=== PATIENT | female | born 1950 | race Caucasian/White ===

== ENCOUNTER 2019-01-14 07:57 | Day surgery (SDC) | payer OTHER, MEDICARE ==
[2019-01-13 13:16] VITALS: BMI 30.7
[2019-01-14 09:32] VITALS: TEMP 97.9
[2019-01-14 10:30] VITALS: BP 127/62; PULSE 59
--- NOTE | 2019-01-15 17:37 | PATH ---
Surgical Pathology Report Patient Name: JESSI PONCE [facility]. Rec. #: [id number] /Age/Gender: 1950 (Age: 68) / F Account: [id number] Location: U-ENDOSCOPY Taken: 01/14/2019 Received: 01/14/2019 Reported: 01/15/2019 Physicians: Juan Antonio Ryan D.O. Specimen(s) Received A: ANTRUM B: BODY AND ANGULARIS C: GE JUNCTION Clinical History Right upper quadrant pain Postoperative diagnosis: Gastritis Final Diagnosis A. ANTRAL EROSIONS, BIOPSY: GASTRIC MUCOSA WITH REACTIVE GASTROPATHY. IMMUNOSTAIN FOR H. PYLORI IS NEGATIVE. NEGATIVE FOR INTESTINAL METAPLASIA. B. BODY AND ANGULARIS, BIOPSY: GASTRIC MUCOSA WITH CHRONIC GASTRITIS. IMMUNOSTAIN FOR H. PYLORI IS NEGATIVE. NEGATIVE FOR INTESTINAL METAPLASIA. C. GE JUNCTION, BIOPSY: COLUMNAR (GASTRIC) MUCOSA WITH MILD CHRONIC GASTRITIS. NEGATIVE FOR INTESTINAL METAPLASIA. Electronically Signed Chad Ramirez M.D. Gross Description A. Received in formalin, labeled "biopsy antral erosions" are 4 barnett, irregular portions of soft tissue ranging from 0.2-0.5 cm. in greatest dimension. The specimens are submitted in toto in one cassette. B. Received in formalin, labeled "biopsy angularis and body" are 2 barnett, irregular portions of soft tissue measuring 0.2 and 0.4 cm. in greatest dimension. The specimens are submitted in toto in one cassette. C. Received in formalin, labeled "biopsy GE junction" are 2 barnett, irregular portions of soft tissue averaging 0.3 cm. in greatest dimension. The specimens are submitted in toto in one cassette. 01/14/2019 saudi01/14/2019
== END 2019-01-14 10:31 | disposition home or self-care (01) ==
LOC: JASU-ENDO 07:57
PROVIDERS: ATTEND Internal Medicine Gastroenterology
PROC: 0DB68ZX Excision of Stomach, Via Natural or Artificial Opening Endoscopic, Diagnostic (ICD-10-PCS; 2019-01-14)
PROC: 0DB58ZX Excision of Esophagus, Via Natural or Artificial Opening Endoscopic, Diagnostic (ICD-10-PCS; 2019-01-14)
PROC: 0DB48ZX Excision of Esophagogastric Junction, Via Natural or Artificial Opening Endoscopic, Diagnostic (ICD-10-PCS; principal; 2019-01-14 09:00)
DX: K25.9 Gastric ulcer, unspecified as acute or chronic, without hemorrhage or perforation (principal); K29.50 Unspecified chronic gastritis without bleeding
CPT/HCPCS: 88305-TC; 88342-TC

== ENCOUNTER 2019-03-23 08:10 | Day surgery (SDC) | payer OTHER, MEDICARE | END 2019-03-23 10:45 | disposition home or self-care (01) | LOC: JASU-ENDO 08:10 ==

== ENCOUNTER 2019-08-11 06:17 | Day surgery (SDC) | payer OTHER, MEDICARE ==
--- NOTE | 2019-03-30 09:37 | HP ---
DATE OF ADMISSION: 05/05/2019 DATE OF DICTATION: 03/02/2019 HISTORY OF PRESENT ILLNESS: The patient to be admitted through the [facility] for laparoscopic removal of her gallbladder/possible open removal. Apparently the patient is having intermittent bouts of epigastric pain and burning, with pain radiating to the right upper quadrant over the course of the past year. The patient also has arthritic changes of the back and does have a lot of back pain. Difficult to ascertain whether her back pain truly reflects arthritic degenerative changes related to her gallbladder as well. Nonetheless, the patient was recently seen by Dr. Sawyer of the GI service. An upper endoscopy demonstrated no significant findings except for a non-bleeding 6 to 7-mm ulcer in the gastric antrum with some surrounding smaller erosions. The biopsies were unremarkable. She was placed on pantoprazole, and is scheduled to undergo a repeat endoscopy in the next couple of months. Additionally, she was referred for a gallbladder ultrasound, which was completed on December 25, 2018, and demonstrated evidence of cholelithiasis with the gallbladder containing a 1-cm gallstone. No intrahepatic or extrahepatic duct dilatation. On questioning the patient does have a fatty food intolerance by history, and will awake at 4 o'clock in the morning with pain on occasion. She also has a strong family history for biliary disease with both her parents. No history of jaundice. No intentional weight loss. PAST MEDICAL HISTORY: Significant for hypertension, hypercholesterolemia, and underlying thyroid disorder. No known history of heart disease, diabetes, or respiratory or hepatic insufficiency. PAST SURGICAL HISTORY: Significant for bilateral knee replacements, total abdominal hysterectomy, Achilles tendon surgery, parotid gland surgery. ALLERGIES: CORTISONE. CURRENT MEDICATIONS: Verapamil, valsartan, atorvastatin, Synthroid, Tylenol, and oxycodone p.r.n. for back pain. SOCIAL HISTORY: Negative tobacco. The patient did smoke up until 1978. Social alcohol, 1 to 4 drinks monthly. FAMILY HISTORY: Mother with history of emphysema and bladder cancer. Father with history of Paget disease. Siblings x1, healthy. REVIEW OF SYSTEMS: Nil. PHYSICAL EXAMINATION: ABDOMEN: Soft and nontender, with no palpable findings. A low transverse scar is noted, consistent with prior RESIDENTIAL COUNSELOR interventions. IMPRESSION: Chronic cholecystitis/cholelithiasis. PLAN: At this juncture the patient has a lot of personal obligations in place, and states that she is taking care of [id number] mother additionally. She would like to defer an operative intervention if at all possible. I have taken the liberty of placing the patient on a low-fat diet. I have explained that she remain symptomatic nonetheless. I encouraged to consider elective laparoscopic cholecystectomy, which she states she may consider in early April. If the patient has opted for elective laparoscopic removal of gallbladder, will proceed with such. If the patient becomes terribly symptomatic in the interim, she may need ER evaluation and earlier intervention. Diet at this juncture. The indications, alternatives, possible complications related to the intended procedure were reviewed. Consent obtained. The patient is to be seen preoperatively by Smith Clark MD. Please refer to his notes for those medical details. NICKY GUTIERREZ M.D. SOMMER/[id number] cc: MD DEMETRIUS KOEHLER DO MTDFernanda
[2019-08-11 07:06] VITALS: BMI 30.4
[2019-08-11] MEDS ORDERED: MIDAZOLAM HCL 2 MG/2 ML SINGLE DOSE VIAL ONE (07:41)
[2019-08-11] MEDS ORDERED: PROPOFOL 20 ML ONE ×3 (07:41→08:14)
[2019-08-11] MEDS ORDERED: fentaNYL CITRATE 250 MCG/5 ML VIAL ONE (07:41)
[2019-08-11] MEDS ORDERED: ROCURONIUM BROMIDE 50 MG/5 ML SYRINGE ONE (07:41)
[2019-08-11] MEDS ORDERED: SUCCINYLCHOLINE CHLORIDE 200 MG/10 ML SYRINGE ONE (07:45)
[2019-08-11] MEDS ORDERED: BUPIVACAINE HCL/PF 2.5 MG/ML - 30 ML VIAL IJ ONE (07:47)
[2019-08-11] MEDS ORDERED: ceFAZolin SODIUM 1 GM VIAL ONE (08:14)
[2019-08-11] MEDS ORDERED: ONDANSETRON 4 MG/2 ML VIAL ONE ×2 (08:15→08:54)
[2019-08-11] MEDS ORDERED: DEXAMETHASONE SOD PHOSPHATE 4 MG/1 ML VIAL ONE ×2 (08:15→08:54)
[2019-08-11] MEDS ORDERED: ePHEDrine SULFATE 50 MG/1 ML AMPULE ONE (08:24)
[2019-08-11] MEDS ORDERED: GLYCOPYRROLATE 0.2 MG/1 ML VIAL ONE ×2 (08:51→08:52)
[2019-08-11] MEDS ORDERED: NEOSTIGMINE METHYLSULFATE 0.5 MG/ML - 10 ML MDV ONE (08:51)
[2019-08-11] MEDS ORDERED: ONDANSETRON 4 MG/2 ML VIAL IVPUSH PRN (09:19)
[2019-08-11] MEDS ORDERED: diazePAM 2 MG TABLET PO PRN (09:19)
[2019-08-11] MEDS ORDERED: D5-1/2NS+20 MEQ KCL - 20 MEQ/1,000 ML INFUS.BAG IV SCH (09:19)
[2019-08-11] MEDS ORDERED: morphine SULFATE 4 MG/ML VIAL IVPB PRN (09:19)
[2019-08-11] MEDS ORDERED: VERAPAMIL HCL 120 MG E.R. TABLET PO SCH ×2 (10:00→22:00)
[2019-08-11] MEDS ORDERED: VALSARTAN 160 MG TABLET (UD) PO SCH (10:00)
[2019-08-11] MEDS ORDERED: HYDROCHLOROTHIAZIDE 12.5 MG CAPSULE (FP) PO SCH (10:00)
[2019-08-11] MEDS ORDERED: [UNRECOGNIZED DRUG - OTHER] PO SCH (10:00)
[2019-08-11] MEDS ORDERED: VALSARTAN PO SCH (10:00)
[2019-08-11] MEDS ORDERED: PANTOPRAZOLE SODIUM 40 MG VIAL IVPUSH SCH (10:00)
[2019-08-11] MEDS ORDERED: LACTATED RINGERS SOLUTION 1,000 ML IV SCH (10:30)
[2019-08-11] MEDS: oxyCODONE HCL 5 MG TABLET PO PRN ×2 (12:15→22:07)
[2019-08-11] MEDS: ACETAMINOPHEN 325 MG TABLET (FP) PO PRN ×2 (12:16→22:06)
--- NOTE | 2019-08-11 18:32 | OP ---
DATE OF OPERATION: 08/11/2019 PREOPERATIVE DIAGNOSIS: Chronic cholecystitis, cholelithiasis. POSTOPERATIVE DIAGNOSIS: Chronic cholecystitis, cholelithiasis. PROCEDURE: Laparoscopic cholecystectomy. OPERATING SURGEON: Rishabh Mirza MD SAMPLER PICKUP: Asaf Escobar MD ANESTHESIA: General, Reginald Osuna MD HISTORY: This is a 69-year-old woman who presents for laparoscopic removal of her gallbladder as management of chronic cholecystitis/cholelithiasis and recurrent pain. Indications, alternatives, possible complications reviewed. Consent obtained. DESCRIPTION OF PROCEDURE: With the patient in the supine position and after general anesthesia, the abdomen was prepped and draped in sterile fashion using chlorhexidine. Small infraumbilical transverse incision was made through which a Veress needle was placed into the abdominal cavity. The abdominal cavity was inflated to an adequate pressure and volume using CO2 gas. The Veress needle was removed. An 11-mm trocar port was placed through the umbilical wound. The camera lens was passed through this port and the intra-abdominal cavity visualized. Under direct vision, two 5-mm right anterolateral ports were placed through which clamps were passed to maintain traction on the gallbladder and aid in the dissection. An 11-mm port was placed in the epigastrium through which the operating instruments were passed. Limited exploration of the abdomen revealed several adhesions about the gallbladder. These were taken down under direct vision exposing the entire gallbladder and hepatoduodenal ligament. The peritoneum and the hepatoduodenal ligament were incised. The cystic duct was identified. The cystic duct bile duct junction was noted. The cystic duct was clipped and divided. The adjacent artery was identified and clipped. The gallbladder was subsequently removed from the liver bed using the electrocautery. Prior to complete disconnection, the bed was inspected and adequate hemostasis ensured. The gallbladder was disconnected. The right upper quadrant was irrigated. The irrigant retrieved. All ports were removed under direct vision. No bleeding identified. The gallbladder was ultimately delivered through the umbilical port site uneventfully. Fascia at the infraumbilical site was closed using interrupted 0 Vicryl sutures. All skin wounds were closed using subcuticular 4-0 Biosyn sutures. INSTRUMENT COUNT: Correct. ESTIMATED BLOOD LOSS: Minimal. SPECIMEN: Gallbladder. DRAINS: None. Patient tolerated the procedure. Procedure was terminated. Yumi [id number] cc: MD Juan Antonio Mcgee DO
[2019-08-12 05:55] VITALS: BP 105/47; PULSE 70; TEMP 98.8
[2019-08-12] MEDS: ACETAMINOPHEN 325 MG TABLET (FP) PO PRN (06:42)
[2019-08-12] MEDS ORDERED: LEVOTHYROXINE NA 50 MCG TABLET (FP) PO SCH (07:00)
[2019-08-12] MEDS ORDERED: ENOXAPARIN NA (PORCINE) 40 MG/0.4 ML DISP.SYRIN SQ SCH (10:00)
[2019-08-12] MEDS ORDERED: VALSARTAN 160 MG TABLET (UD) PO SCH (10:00)
[2019-08-12] MEDS ORDERED: HYDROCHLOROTHIAZIDE 12.5 MG CAPSULE (FP) PO SCH (10:00)
--- NOTE | 2019-08-12 10:09 | PN ---
Progress Note, Physician Chief Complaint: s/p lap polo under general anesthesia History of Present Illness: post op day one - Objective Vital Signs: Vital Signs Temperature 98.8 F 08/12/19 05:54 Pulse Rate 70 08/12/19 05:54 Respiratory Rate 16 08/12/19 05:54 Blood Pressure 105/47 L 08/12/19 05:54 O2 Sat by Pulse Oximetry (%) 93 L 08/12/19 05:54 Constitutional: Yes: Well Nourished Cardiovascular: Yes: WNL Respiratory: Yes: WNL Gastrointestinal: Yes: WNL Assessment/Plan no adverse anesthetic complications, dept of anesthesia will sign off case at this time
--- NOTE | 2019-08-13 16:11 | PATH ---
Surgical Pathology Report Patient Name: JESSI PONCE Med. Rec. #: [id number] /Age/Gender: 1950 (Age: 69) / F Account: [id number] Location: [facility] MED-SURG Taken: 08/11/2019 Received: 08/11/2019 Reported: 08/13/2019 Physicians: Rishabh Mirza M.D. Specimen(s) Received GALLBLADDER Clinical History Chronic cholecystitis Final Diagnosis GALLBLADDER, CHOLECYSTECTOMY: CHRONIC CHOLECYSTITIS WITH CHOLELITHIASIS, CHOLESTEROLOSIS AND CHOLESTEROL POLYPS. Electronically Signed Tequila Frost M.D. Gross Description Received in formalin, labeled "gallbladder," is a 6.8 x 2.8 x 1.5 cm. gallbladder with a 0.2 cm. in length portion of cystic duct attached. The outer surface is barnett-green and varies from smooth to shaggy. The lumen contains green, tenacious bile as well as a 1.0 cm in greatest dimension black irregular cholelith. The mucosa is green and velvety with multifocal yellow mucosal polyps averaging 0.1 cm in greatest dimension. The wall of the gallbladder measures 0.1 cm. in thickness. Treatment Coordinator sections are submitted in 2 cassettes as follows: 1-cystic duct margin and uninvolved mucosa; 2-mucosal polyps. 08/12/2019 [facility]
== END 2019-08-12 09:50 | disposition home health service (06) ==
LOC: FASU 06:17 → FASUSAT 06:17 → FM/S 09:19 → FASUSAT 08-12 09:50
PROVIDERS: ATTEND Surgery
PROC: 0FT44ZZ Resection of Gallbladder, Percutaneous Endoscopic Approach (ICD-10-PCS; principal; 2019-08-11 08:27)
DX: K80.44 Calculus of bile duct with chronic cholecystitis without obstruction (principal); I10 Essential (primary) hypertension; E78.00 Pure hypercholesterolemia, unspecified; E07.9 Disorder of thyroid, unspecified
CPT/HCPCS: 88304-TC; 94760